=== PATIENT | female | born 1995 | race Caucasian/White ===

== ENCOUNTER → 2024-04-05 | Outpatient (CLI) | payer OTHER ==
[2024-04-05 18:10] LABS: HEMATOCRIT 41.6 % (36.0-47.0); HEMOGLOBIN 14.4 g/dl (12.0-15.5); MEAN CORPUSCULAR HGB CONC 34.6 g/dl (32.0-36.5); MEAN CORPUSCULAR VOLUME 89.7 fl (80.0-96.0); PLATELET COUNT, AUTOMATED 313 10^3/uL (150-450); RED BLOOD COUNT 4.64 10^6/uL (4.00-5.40); WHITE BLOOD COUNT 12.4 10^3/uL (4.0-10.0)
[2024-04-05 19:09] LABS: HIV 1&2 SCREEN NEGATIVE (NEGATIVE)
[2024-04-05 19:16] LABS: GC DNA AMPLIFICATION NEGATIVE (NEGATIVE)
[2024-04-05 19:17] LABS: HEPATITIS C VIRUS ABY INDEX < 0.02 INDEX (<0.8)
== END ==
LOC: M PLALAB 15:48
PROVIDERS: ATTEND Advanced Practice Midwife
DX: Z34.01 Encounter for supervision of normal first pregnancy, first trimester (principal)

== ENCOUNTER → 2024-05-28 | Outpatient (REF) | payer OTHER | LOC: M PLALAB 09:44 | PROVIDERS: ATTEND Obstetrics & Gynecology | DX: Z36.89 Encounter for other specified antenatal screening (principal); Z3A.19 19 weeks gestation of pregnancy ==

== ENCOUNTER → 2024-05-29 | Outpatient (CLI) | payer OTHER | LOC: M WHC 06:40 | PROVIDERS: ATTEND Advanced Practice Midwife | DX: Z34.82 Encounter for supervision of other normal pregnancy, second trimester (principal) ==

== ENCOUNTER → 2024-05-31 | Outpatient (CLI) | payer OTHER | LOC: M PLALAB 13:59 | PROVIDERS: ATTEND Advanced Practice Midwife | DX: O26.899 Other specified pregnancy related conditions, unspecified trimester (principal) ==

== ENCOUNTER → 2024-07-30 | Outpatient (CLI) | payer OTHER ==
[2024-07-30 18:58] LABS: HEMATOCRIT 40.2 % (36.0-47.0); HEMOGLOBIN 13.5 g/dl (12.0-15.5); MEAN CORPUSCULAR HEMOGLOBIN 30.7 pg (27.0-33.0); MEAN CORPUSCULAR HGB CONC 33.6 g/dl (32.0-36.5); MEAN CORPUSCULAR VOLUME 91.4 fl (80.0-96.0); PLATELET COUNT, AUTOMATED 263 10^3/uL (150-450); WHITE BLOOD COUNT 11.8 10^3/uL (4.0-10.0)
[2024-07-30 19:18] LABS: GLUCOSE CHALLENGE TEST 1 HOUR 145 MG/DL (LESS THAN 140)
[2024-07-30 19:51] LABS: HIV 1&2 SCREEN NEGATIVE (NEGATIVE)
[2024-07-30 19:59] LABS: HEPATITIS C VIRUS ABY INDEX < 0.02 INDEX (<0.8)
== END ==
LOC: M PLALAB 14:25
PROVIDERS: ATTEND Obstetrics & Gynecology
DX: Z34.92 Encounter for supervision of normal pregnancy, unspecified, second trimester (principal)

== ENCOUNTER → 2024-08-05 | Outpatient (CLI) | payer OTHER | LOC: M LAB 07:22 | PROVIDERS: ATTEND Obstetrics & Gynecology | DX: R73.01 Impaired fasting glucose (principal) ==

== ENCOUNTER → 2024-09-27 | Outpatient (REF) | payer OTHER | LOC: M PLALAB 08:41 | PROVIDERS: ATTEND Nurse Practitioner Family | DX: O99.213 Obesity complicating pregnancy, third trimester (principal); E66.09 Other obesity due to excess calories; R12 Heartburn; Z3A.36 36 weeks gestation of pregnancy; Z88.0 Allergy status to penicillin ==

== ENCOUNTER 2024-10-19 06:49 | Inpatient (IN) | payer OTHER ==
[~2024-10-19] VITALS: Ht 160 cm; Wt 101.9 kg
[2024-10-19] MEDS ORDERED: PRENTAB9 PO (07:13)
[2024-10-19] MEDS ORDERED: OMEP10CASR PO (07:13)
[2024-10-19 07:26] VITALS: BP 131/74
[2024-10-19] MEDS: LACTATED RINGER'S 1000 ML IV STA (07:46)
[2024-10-19 08:17] LABS: HEMATOCRIT 40.7 % (36.0-47.0); HEMOGLOBIN 14.1 g/dl (12.0-15.5); MEAN CORPUSCULAR HEMOGLOBIN 30.7 pg (27.0-33.0); MEAN CORPUSCULAR HGB CONC 34.6 g/dl (32.0-36.5); MEAN CORPUSCULAR VOLUME 88.7 fl (80.0-96.0); PLATELET COUNT, AUTOMATED 224 10^3/uL (150-450); RED BLOOD COUNT 4.59 10^6/uL (4.00-5.40); WHITE BLOOD COUNT 12.3 10^3/uL (4.0-10.0)
[2024-10-19 09:20] LABS: HIV 1&2 SCREEN NEGATIVE (NEGATIVE)
[2024-10-19 09:28] LABS: HEPATITIS C VIRUS ABY INDEX 0.14 INDEX (<0.8)
[2024-10-19] MEDS: miSOPROStol 50MCG 1/2 TABLET PO PRN (09:52)
[2024-10-19 09:54] VITALS: BP 121/79
[2024-10-19 14:12] VITALS: BP 122/76
[2024-10-19] MEDS: LR 1,000 ML IV SCH (15:50)
[2024-10-19 18:05] VITALS: BP 112/77
[2024-10-19 20:02] VITALS: BP 105/76
[2024-10-19 22:05] VITALS: BP 115/67
[2024-10-20] VITALS (47 sets, daily range): BP systolic 84–175; BP diastolic 47–98; O2SAT 98
[2024-10-20] MEDS ORDERED: diphenhydrAMINE 50MG/ML VIAL IV PRN (03:00)
[2024-10-20] MEDS ORDERED: EPIDURAL/PCA KEYS XX PRN (03:00)
[2024-10-20] MEDS ORDERED: NALOXONE INJ 0.4MG/1ML VIAL IV PRN (03:00)
[2024-10-20] MEDS: FENTANYL/ROPIVACAINE/NACL BAG 100 ML EPIDURAL SCH (03:38)
[2024-10-20] MEDS: OXYTOCIN DRIP 30 UNITS in IV 1 EA IV SCH ×2 (03:38→09:30)
[2024-10-20] MEDS: ePHEDrine SULFATE 25 MG/5 ML(5MG/ML) SYRINGE IVP PRN (04:11)
[2024-10-20] MEDS: LR 500 ML IV PRN (04:11)
[2024-10-20] MEDS: ONDANSETRON 4MG 2ML VIAL IV PRN (04:15)
[2024-10-20] MEDS ORDERED: OXYTOCIN DRIP 30 UNITS in IV 1 EA IV SCH (05:25)
[2024-10-20] MEDS: PRENATAL VITAMINS CHEWABLE TABLET PO SCH (09:00)
[2024-10-20 09:25] LABS: CORD GAS ABE A -11.3; CORD GAS HCO3 A 20.5 MMOL/L; CORD GAS O2 SAT A 48.1 %; CORD GAS PCO2 A 73.5 mmHg; CORD GAS PH A 7.063 UNITS; CORD GAS PO2 A 25.8 mmHg; CORD GAS SBC A 14.7 MMOL/L; CORD GAS TCO2 A 22.7 MMOL/L
[2024-10-20 09:28] LABS: CORD GAS ABE V -12.2; CORD GAS HCO3 V 16.3 MMOL/L; CORD GAS O2 SAT V 74.8 %; CORD GAS PCO2 V 46.6 mmHg; CORD GAS PH V 7.162 UNITS; CORD GAS PO2 V 36.4 mmHg; CORD GAS SBC V 14.7 MMOL/L; CORD GAS TCO2 V 17.7 MMOL/L
[2024-10-20] MEDS ORDERED: ACETAMINOPHEN 325 MG TAB PO PRN (09:30)
[2024-10-20] MEDS ORDERED: DOCUSATE SODIUM 100MG CAPSULE PO PRN (09:30)
[2024-10-20] MEDS ORDERED: METHYLERGONOVINE MALEATE 0.2 MG TAB PO PRN (09:30)
[2024-10-20] MEDS ORDERED: RHOGAM 300MCG (1500IU) INJ IM SCH (09:30)
[2024-10-20] MEDS: ACETAMINOPHEN 500 MG TAB PO PRN (12:00)
[2024-10-20] MEDS: DIBUCAINE 1% OINTMENT 30GM TOP PRN (12:00)
[2024-10-20] MEDS: IBUPROFEN 600MG TAB PO PRN (22:58)
[2024-10-21 06:39] VITALS: BP 110/57; O2SAT 97
[2024-10-21] MEDS: IBUPROFEN 800 MG TAB PO PRN (07:39)
[2024-10-21] MEDS ORDERED: ACET-683 PO (11:03)
[2024-10-21] MEDS ORDERED: IBUP80TA PO (11:03)
[2024-10-21] MEDS: MEASLES,MUMPS,RUBELLA VACCINE INJ (MMR-II) SC.IMMUN ONE (12:05)
== END 2024-10-21 13:00 | disposition home or self-care (01) | DRG 807 ==
LOC: M LDI 06:49 → M OBS 10-20 11:02
PROVIDERS: ADMIT Obstetrics & Gynecology; ATTEND Obstetrics & Gynecology
PROC: 3E0P7GC Introduction of Other Therapeutic Substance into Female Reproductive, Via Natural or Artificial Opening (ICD-10-PCS; 2024-10-19)
PROC: 10E0XZZ Delivery of Products of Conception, External Approach (ICD-10-PCS; principal; 2024-10-20)
PROC: 0KQM0ZZ Repair Perineum Muscle, Open Approach (ICD-10-PCS; 2024-10-20)
PROC: 10907ZC Drainage of Amniotic Fluid, Therapeutic from Products of Conception, Via Natural or Artificial Opening (ICD-10-PCS; 2024-10-20)
DX: O69.81X0 Labor and delivery complicated by cord around neck, without compression, not applicable or unspecified (principal); Z37.0 Single live birth; Z3A.39 39 weeks gestation of pregnancy; O70.1 Second degree perineal laceration during delivery

== ENCOUNTER → 2025-04-04 | Outpatient (REF) | payer OTHER ==
[~2025-04-04] MED LIST: ACET-683 PO; IBUP80TA PO; OMEP10CASR PO; PRENTAB9 PO
[2025-04-04 18:00] LABS: FREE T4 2.25 NG/DL (0.89-1.76)
== END ==
LOC: M SFHCLERA 07:49
PROVIDERS: ATTEND Student in an Organized Health Care Education/Training Program
DX: R79.89 Other specified abnormal findings of blood chemistry (principal); Z83.3 Family history of diabetes mellitus

== ENCOUNTER → 2025-04-11 | Outpatient (REF) | payer OTHER ==
[2025-04-11 17:35] LABS: FREE T4 2.10 NG/DL (0.89-1.76)
[2025-04-11 17:38] LABS: THYROGLOBULIN ANTIBODY 259.0 U/ML (<60.0)
[2025-04-11 17:55] LABS: THYROID PEROXIDASE ANTIBODY > 1300.0 U/ML (<60.0)
== END ==
LOC: M SFHCLERA 07:20
PROVIDERS: ATTEND Student in an Organized Health Care Education/Training Program
DX: R79.89 Other specified abnormal findings of blood chemistry (principal)

== ENCOUNTER → 2025-06-02 | Outpatient (REF) | payer OTHER ==
[2025-06-02 18:32] LABS: FREE T4 1.25 NG/DL (0.89-1.76)
[2025-06-02 18:35] LABS: TOTAL T3 151.1 NG/DL (60.0-181.0)
== END ==
LOC: M LRY 17:28
PROVIDERS: ATTEND Nurse Practitioner Family
DX: E05.00 Thyrotoxicosis with diffuse goiter without thyrotoxic crisis or storm (principal)

== ENCOUNTER → 2025-07-29 | Outpatient (REF) | payer OTHER ==
[2025-07-29 19:05] LABS: FREE T4 1.12 NG/DL (0.89-1.76)
[2025-07-29 19:07] LABS: TOTAL T3 143.0 NG/DL (60.0-181.0)
== END ==
LOC: M LRY 17:23
PROVIDERS: ATTEND Nurse Practitioner Family
DX: E05.00 Thyrotoxicosis with diffuse goiter without thyrotoxic crisis or storm (principal)

== ENCOUNTER → 2025-08-13 | Outpatient (CLI) | payer OTHER | LOC: M RAD 15:27 | PROVIDERS: ATTEND Student in an Organized Health Care Education/Training Program | DX: R79.89 Other specified abnormal findings of blood chemistry (principal); E04.1 Nontoxic single thyroid nodule ==